=== PATIENT | female | born 1970 | race Caucasian/White ===

== ENCOUNTER 2023-11-06 07:29 | Day surgery (SDC) | payer MEDICAID ==
[~2023-11-06 07:29] MED LIST: Sodium Chloride 0.9% 10 ML Syringe FLUSH PRN; Sodium Chloride 0.9% 2.5 ML Syringe FLUSH PRN; Sodium Chloride 0.9% 20 ML SDV IV PRN
[2023-11-06] MEDS: Lactated Ringers 1,000 ML IV SCH (07:45)
[2023-11-06] MEDS ORDERED: Propofol 200 MG/20 ML SDV ONE ×3 (09:26→09:51)
[2023-11-06] MEDS ORDERED: Lidocaine 2% 5 ML SDV ONE (09:26)
== END 2023-11-06 10:40 | disposition home or self-care (01) ==
LOC: MW.SDS 07:29
PROVIDERS: ATTEND Surgery
DX: Z12.11 Encounter for screening for malignant neoplasm of colon (principal); D12.3 Benign neoplasm of transverse colon; D12.5 Benign neoplasm of sigmoid colon; D12.4 Benign neoplasm of descending colon; K57.30 Diverticulosis of large intestine without perforation or abscess without bleeding; R19.5 Other fecal abnormalities; E11.9 Type 2 diabetes mellitus without complications; I10 Essential (primary) hypertension; K21.9 Gastro-esophageal reflux disease without esophagitis; E66.9 Obesity, unspecified; Z88.0 Allergy status to penicillin; Z79.84 Long term (current) use of oral hypoglycemic drugs; Z79.899 Other long term (current) drug therapy; Z68.35 Body mass index [BMI] 35.0-35.9, adult
CPT/HCPCS: 45380; 45385; 82947; J2704; J7120; 00811; J3490

== ENCOUNTER 2024-10-21 09:06 | Day surgery (SDC) | payer MEDICAID, OTHER ==
[~2024-10-21 09:06] MED LIST changes: -Sodium Chloride 0.9% 20 ML SDV IV PRN
[2024-10-21] MEDS ORDERED: Propofol 200 MG/20 ML SDV ONE (10:22)
[2024-10-21] MEDS ORDERED: dexmedeTOMIDine HCl 200 MCG/2 ML SDV ONE (10:27)
[2024-10-21] MEDS: Lactated Ringers 1,000 ML IV SCH (10:34)
== END 2024-10-21 12:00 | disposition home or self-care (01) ==
LOC: MW.SDS 09:06
PROVIDERS: ATTEND Surgery
DX: Z12.11 Encounter for screening for malignant neoplasm of colon (principal); D12.3 Benign neoplasm of transverse colon; K63.5 Polyp of colon; K57.30 Diverticulosis of large intestine without perforation or abscess without bleeding; I10 Essential (primary) hypertension; E11.9 Type 2 diabetes mellitus without complications; E66.9 Obesity, unspecified; Z88.0 Allergy status to penicillin; Z79.84 Long term (current) use of oral hypoglycemic drugs; Z68.38 Body mass index [BMI] 38.0-38.9, adult; Z79.899 Other long term (current) drug therapy; Z86.0100 Personal history of colon polyps, unspecified
CPT/HCPCS: 45380; J2704; J7120; 00811